=== PATIENT | male | born 1980 | race Caucasian/White ===

== ENCOUNTER 2016-05-05 18:54 | Emergency (ER) | payer BC ==
[~2016-05-05] VITALS: Ht 182.9 cm; Wt 113.6 kg
[2016-05-05 19:15] VITALS: BP 141/98; PULSE 117; RESP 20; O2SAT 98
[2016-05-05 19:22] VITALS: BP 141/98; PULSE 125; RESP 18; TEMP 98.8; O2SAT 95
[2016-05-05] MEDS ORDERED: ONDANSETRON HCL 4 MG/2 ML VIAL IVP ONE (19:30)
[2016-05-05] MEDS ORDERED: MORPHINE SULFATE 4 MG/ML INJ IV ONE (19:30)
[2016-05-05] MEDS ORDERED: SODIUM CHLORIDE 0.9% FLUSH 5 ML FLUSH IVF PRN (19:30)
--- NOTE | 2016-05-05 19:45 | PD ---
HPI . Injury to the left upper arm. Chief Complaint: Fall Time Seen by Provider: 19:11 Travel History International Travel<30 days: No Contact w/Intl Traveler<30days: No Traveled to known affect area: No History of Present Illness HPI Patient states that he tripped and fell while getting off of the boat and onto a dock. He denies any other associated injuries. He admits that he's been drinking beer all day. PFSH Past Medical History Medical History: Denies Significant Hx Diminished Hearing: No Tetanus Vaccination: > 5 Years Influenza Vaccination: No Past Surgical History Other Surgery: Yes (ACHILLES TENDON) Social History Alcohol Use: Yes (SOCIALLY) Tobacco Use: No Substance Use: No Allergies-Medications (Allergen,Severity, Reaction): Coded Allergies: No Known Allergies (Unverified , 05/05/16) Reported Meds & Prescriptions Reported Meds & Active Scripts Active Percocet (Oxycodone-Acetaminophen) 5-325 mg Tab 1-2 Tab PO Q4H PRN Review of Systems Except as stated in HPI: all other systems reviewed are Neg Musculoskeletal: Positive: Pain (left upper arm) Physical Exam Narrative GENERAL: Pleasantly intoxicated and in no acute distress. SKIN: Warm and dry. HEAD: Atraumatic. Normocephalic. EYES: Pupils equal and round. ENT: No nasal bleeding or discharge. Mucous membranes pink and moist. NECK: Trachea midline. CARDIOVASCULAR: Regular rate and rhythm. RESPIRATORY: No accessory muscle use. GASTROINTESTINAL: Abdomen soft, non-tender, nondistended. MUSCULOSKELETAL: Obvious deformity to the left mid humerus. Normal movement, sensation, pulses and capillary refill distally. NEUROLOGICAL: Awake and alert. No obvious cranial nerve deficits. Motor grossly within normal limits. Normal speech. PSYCHIATRIC: Appropriate mood and affect; insight and judgment normal. Data Data Last Documented VS Vital Signs Date Time Temp Pulse Resp B/P Pulse Ox O2 Delivery O2 Flow Rate FiO2 05/05/16 19:22 98.8 125 18 141/98 95 Orders Basic Metabolic Panel (Bmp) (05/05/16 19:18) Complete Blood Count With Diff (05/05/16 19:18) Prothrombin Time / Inr (Pt) (05/05/16 19:18) Act Partial Throm Time (Ptt) (05/05/16 19:18) Type And Screen (05/05/16 19:18) Alcohol (Ethanol) (05/05/16 19:18) Urinalysis - C+S If Indicated (05/05/16 19:18) Chest, Single Ap (05/05/16 19:18) Electrocardiogram (05/05/16 19:18) Iv Access Insert/Monitor (05/05/16 19:18) Ondansetron Inj (Zofran Inj) (05/05/16 19:30) Sodium Chloride 0.9% Flush (Ns Flush) (05/05/16 19:30) Drug Screen, Random Urine (05/05/16 19:18) Morphine Inj (Morphine Inj) (05/05/16 19:30) Humerus (Min 2vws) (05/05/16 ) Sodium Chlor 0.9% 1000 Ml Inj (Ns 1000 M (05/05/16 20:15) Splint Or Brace Apply/Monitor (05/05/16 20:11) MDM Medical Decision Making Medical Screen Exam Complete: Yes Emergency Medical Condition: Yes Interpretation(s) EKG shows sinus tachycardia with a rate of 122. No acute ischemic change. No old EKGs for comparison. Differential Diagnosis Differential diagnosis of extremity trauma includes but is not limited to fracture, sprain or strain, dislocation, contusion Narrative Course Patient presents for treatment of the left upper extremity injury. It appears obviously fractured. Last Impressions Chest X-Ray 05/05/16 1918 Signed Impressions: Service Date/Time: Thursday, May 05, 2016 19:26 - CONCLUSION: Normal examination. Paulie Bowens MD Humerus X-Ray 05/05/16 0000 Signed Impressions: Service Date/Time: Thursday, May 05, 2016 19:21 - CONCLUSION: 1. Mid shaft left humerus fracture. Paulie Bowens MD X-rays were independently viewed by me. The patient lives in [place]. He will follow-up in [place]. Physician Communication Physician Communication Dr. Landis recommends splinting and follow-up as an outpatient. Diagnosis Primary Impression: Left humeral fracture Qualified Code: S42.332A - Closed displaced oblique fracture of shaft of left humerus, initial encounter Referrals: Marky Villeda MD 3 days Patient Instructions: General Instructions, Narcotic given in the ED, Proximal Humerus Fracture (ED) Scripts Oxycodone-Acetaminophen (Percocet)5-325 mg Tab1-2 Tab PO Q4H PRN (PAIN) #20 TAB Ref 0 Prov:Margret Ruiz MD 05/05/16 Disposition: 01 DISCHARGE HOME Condition: Stable Margret Ruiz MD May 05, 2016 19:44
--- NOTE | 2016-05-05 19:52 | RADHPO ---
EXAM DATE/TIME: 05/05/2016 19:26 [facility] COMPARISON: No previous studies available for comparison. INDICATIONS : Trauma. Fall today. MEDICAL HISTORY : None. SURGICAL HISTORY : None. ENCOUNTER: Initial ACUITY: 1 day PAIN SCORE: 0/10 LOCATION: Bilateral chest FINDINGS: A single view of the chest demonstrates the lungs to be symmetrically aerated without evidence of mas s, infiltrate or effusion. The cardiomediastinal contours are unremarkable. Osseous structures are intact. CONCLUSION: Normal examination. Paulie Bowens MD on May 05, 2016 at 19:50 Board Certified Radiologist. This report was verified electronically.
--- NOTE | 2016-05-05 19:52 | RADHPO ---
EXAM DATE/TIME: 05/05/2016 19:21 [facility] COMPARISON: No previous studies available for comparison. INDICATIONS : Humerus fracture MEDICAL HISTORY : None. SURGICAL HISTORY : None. ENCOUNTER: Initial ACUITY: 1 day PAIN SCORE: 10/10 LOCATION: Left humerus. FINDINGS: There is a mildly displaced fracture midshaft left humerus. No dislocation. CONCLUSION: 1. Mid shaft left humerus fracture. Paulie Bowens MD on May 05, 2016 at 19:51 Board Certified Radiologist. This report was verified electronically.
[2016-05-05] MEDS ORDERED: PERC5TAB12 PO (20:13)
[2016-05-05] MEDS ORDERED: SODIUM CHLOR 0.9% 1000 ML INJ 1,000 ML IV ONE (20:15)
[2016-05-05 20:39] LABS: BLOOD, URINE TRACE (NEG); GLUCOSE,URINE NEG (NEG); KETONE, URINE NEG (NEG); NITRITE,URINE NEG (NEG); PH, URINE 5.5 (5.0-8.5)
[2016-05-05 20:40] LABS: AUTOMATED NEUTROPHIL # 9.9 TH/MM3 (1.8-7.7); BASOPHIL # 0.1 TH/MM3 (0-0.2); EOSINOPHIL # 0.1 TH/MM3 (0-0.4); EOSINOPHIL % 1.1 % (0.0-4.0); HEMO FLAGS DIFF FINAL; LYMPH % 8.4 % (9.0-44.0); MEAN CELL VOLUME 88.7 FL (80.0-100.0); MEAN CORPUSCULAR HEMOGLOBIN 30.9 PG (27.0-34.0); MEAN CORPUSCULAR HGB CONC 34.8 % (32.0-36.0); NEUT % 84.5 % (16.0-70.0); PLATELET COUNT 174 TH/MM3 (150-450); RED BLOOD COUNT 5.19 MIL/MM3 (4.50-5.90); RED CELL DISTRIBUTION WIDTH 12.3 % (11.6-17.2); WHITE BLOOD COUNT 11.7 TH/MM3 (4.0-11.0)
[2016-05-05 20:43] LABS: URINE COLOR STRAW (YELLW/STRAW)
[2016-05-05 20:44] LABS: COMMENT (UR) CULT NOT INDICATED; CULTURE IF INDICATED CULT NOT INDICATED; RBC, URINE 0-2 /hpf (0-3); SQUAMOUS EPITHELIAL CELL URINE 0-5 /hpf (0-5); WBC, URINE 0-2 /hpf (0-5)
[2016-05-05 20:45] LABS: POTASSIUM 3.7 MEQ/L (3.5-5.1)
[2016-05-05 20:49] LABS: AMPHETAMINE, URINE NEG (NEG); BARBITURATES, URINE NEG (NEG); COCAINE, URINE NEG (NEG)
[2016-05-05 20:51] LABS: APTT (PATIENT) 24.9 SEC (24.3-30.1); INTERNATIONAL NORMALIZED RATIO 0.9 RATIO; PROTHROMBIN TIME - PATIENT 10.3 SEC (9.8-11.6)
[2016-05-05 21:05] VITALS: BP 154/101; PULSE 114; RESP 18; O2SAT 99
[2016-05-05 21:40] VITALS: BP 155/106; PULSE 114; RESP 18; O2SAT 98
--- NOTE | 2016-05-05 22:38 | RADHPO ---
EXAM DATE/TIME: 05/05/2016 21:49 [facility] COMPARISON: No previous studies available for comparison. INDICATIONS : Post reduction left humerus fracture. MEDICAL HISTORY : None. SURGICAL HISTORY : None. ENCOUNTER: Initial ACUITY: 1 day PAIN SCORE: 6/10 LOCATION: Left humerus. FINDINGS: There is a mildly displaced fracture through the mid to distal shaft left humerus. Alignment is simil ar. CONCLUSION: 1. Left femur shaft fracture similar to earlier exam. Paulie Bowens MD on May 05, 2016 at 22:36 Board Certified Radiologist. This report was verified electronically.
[2016-05-05 22:45] VITALS: BP 145/94; PULSE 116; RESP 18; O2SAT 99
--- NOTE | 2016-05-06 12:52 | EKG ---
Date Performed: 05/05/2016 Time Performed: 19:55:30 PTAGE: 35 years EKG: Sinus tachycardia Poor R wave progression - probable normal variant Borderline ECG NO PREVIOUS TRACING DOCTOR: Billy Anderson Interpretating Date/Time 05/06/2016 12:49:31
== END 2016-05-05 23:05 | disposition home or self-care (01) ==
LOC: PHED 18:54
DX: S42.392A Other fracture of shaft of left humerus, initial encounter for closed fracture (principal); W01.198A Fall on same level from slipping, tripping and stumbling with subsequent striking against other object, initial encounter; Y92.89 Other specified places as the place of occurrence of the external cause
CPT/HCPCS: 29105; 71010; 73060; 80048; 80307; 80320; 81001; 85025; 85610; 85730; 86850; 86900; 86901; 93005; 96361; 96374; 96375; 99284; J2270; J2405; J7030